=== PATIENT | female | born 1940 | race Caucasian/White ===

== ENCOUNTER 2019-03-25 19:08 | Emergency (ER) | payer OTHER ==
[~2019-03-25] VITALS: Ht 154.9 cm; Wt 42.2 kg
[~2019-03-25 19:08] MED LIST: AVAPRO150 MG
[2019-03-25] MEDS ORDERED: ADULT ASPIRIN81 MG (19:19)
[2019-03-26] MEDS ORDERED: MOBIC15 MG PO (02:56)
== END 2019-03-26 03:04 ==
LOC: ER 19:08
DX: R07.89 Other chest pain (principal)

== ENCOUNTER 2019-04-21 08:48 | Emergency (ER) | payer OTHER ==
[~2019-04-21] VITALS: Ht 154.9 cm; Wt 42.2 kg
[~2019-04-21 08:48] MED LIST changes: +ADULT ASPIRIN81 MG; +MOBIC15 MG PO
== END 2019-04-21 15:37 | disposition home or self-care (01) ==
LOC: ER 08:48
DX: R42 Dizziness and giddiness (principal)